=== PATIENT | male | born 1990 | race Caucasian/White ===

== ENCOUNTER 2017-05-18 23:40 | Emergency (ER) | payer SELFPAY ==
[2017-05-19 01:17] VITALS: BP 146/80
== END 2017-05-19 01:17 | disposition home or self-care (01) ==
LOC: ED 23:40
DX: S59.912A Unspecified injury of left forearm, initial encounter (principal); W22.8XXA Striking against or struck by other objects, initial encounter; Y93.89 Activity, other specified; Y99.8 Other external cause status; Y92.89 Other specified places as the place of occurrence of the external cause
CPT/HCPCS: A4570; Q0092